=== PATIENT | female | born 1990 | race Caucasian/White ===

== ENCOUNTER 2020-10-14 14:53 | Emergency (ER) | payer OTHER, SELFPAY ==
[2020-10-14 15:12] VITALS: BP 110/59; PULSE 87; RESP 16; TEMP 36.7; O2SAT 97
--- NOTE | 2020-10-14 16:32 | ED.BACK ---
HPI - Back Pain/Injury General Chief Complaint: Back Pain/Injury Stated Complaint: states threw out her back Time Seen by Provider: 10/14/20 16:24 Source: patient Mode of arrival: Ambulatory Limitations: no limitations History of Present Illness HPI Narrative: Patient is an otherwise healthy 30-year-old female here for evaluation of back pain. 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 She states that feel like she is having muscle spasms and occasionally having radiation down her right leg. She has had low back pain in the past and has had epidural steroid injections for that was a couple years ago. She is not having any urinary symptoms. No change in bowel habits. Has not tried anything for symptoms prior to arrival. Related Data Home Medications Medication Instructions Recorded Confirmed Ethinyl Estradiol/Norgestima 1 tab PO QDAY #0 pac 04/03/16 (ORTHO TRI-CYCLEN LO) bupropion HCl [Wellbutrin SR] 150 mg PO Q2DAYS #0 04/03/16 ibuprofen 800 mg PO PRN PRN #0 04/03/16 sertraline 50 mg PO QDAY #0 tab 04/03/16 Previous Rx's Medication Instructions Recorded cyclobenzaprine 10 mg PO TID PRN #20 tab 10/14/20 hydrocodone-acetaminophen [[place]] 1 tab PO Q6H PRN #10 tab 10/14/20 Allergies Allergy/AdvReac Type Severity Reaction Status Date / Time No Known Drug Allergies Allergy Verified 10/14/20 15:14 Review of Systems Constitutional Constitutional: Denies fatigue and Denies headache(s) ENT Ears, Nose, Mouth, and Throat: Denies headache(s) Cardiovascular Cardiovascular: Denies chest pain and Denies dyspnea Respiratory Respiratory: Denies dyspnea Gastrointestinal Gastrointestinal: Denies abdominal pain, Denies nausea and Denies vomiting Musculoskeletal Musculoskeletal: Reports back pain and Reports stiffness Integumentary/Breasts Skin/Breast: Denies rash Neurologic Neurologic: Denies behavioral changes and Denies headache(s) Psychiatric Psychiatric: Denies behavioral changes Endocrine Endocrine: Denies fatigue Hematologic/Lymphatic On Anticoagulants: No Allergic/Immunologic Allergic/Immunologic: Denies urticaria Patient History Medical History Lower back pain Social History lives independently: Yes Exam Initial Vital Signs Initial Vital Signs: Vital Signs Temperature 98.0 F 10/14/20 15:12 Pulse Rate 87 10/14/20 15:12 Respiratory Rate 16 10/14/20 15:12 Blood Pressure 110/59 L 10/14/20 15:12 Pulse Oximetry 97 10/14/20 15:12 Const General: cooperative and comfortable Limitations: mental status not altered HENMT Head: normal to inspection and normocephalic Resp Effort & Inspection: normal respiratory effort Auscultation: clear to auscultation bilaterally Cardio Rate: regular rate Rhythm: regular rhythm Back/Spine/Pelvis Cervical Spine: No cervical spinal tenderness Thoracic/Lumbar Spine: No paraspinal tenderness, No thoracic spinal tenderness and No lumbar spinal tenderness Sacroiliac Joints: No nontender Skin Lesions: no lesions Rashes: no rashes Neuro General: patient alert and patient awake Cognition: normal cognition Speech: speech normal Extrem General: normal to inspection and capillary refill normal Psych Appearance: grossly normal and well kempt Course Orders Ordered: Discontinued Medications Hydromorphone HCl (Hydromorphone 1 Mg Inj) 1 mg IM NOW ONE Stop: 10/14/20 16:35 Last Admin: 10/14/20 16:55 Dose: 1 mg Documented by: LESLEY Ketorolac Tromethamine (Ketorolac 60 Mg/2 Ml Vial) 30 mg IM NOW ONE Stop: 10/14/20 16:35 Last Admin: 10/14/20 16:56 Dose: 30 mg Documented by: LESLEY Vital Signs Vital signs: Vital Signs - 8 hr 10/14/20 15:12 10/14/20 17:28 Temperature 98.0 F Pulse Rate 87 75 Respiratory Rate 16 16 Blood Pressure 110/59 L 125/66 Pulse Oximetry 97 98 MDM - Back Pain/Injury MDM Narrative Medical decision making narrative: She has no reproducible tenderness to palpation here in the ER. I do of low suspicion for cauda equina given her presentation today. I suspect this is musculoskeletal in origin in the setting of her low back pain in the past. Will send home with symptom treatment. She was given return precautions. She expressed understanding and agreement. Discharge Plan Departure Patient Disposition: Home Clinical Impression: Back pain Instructions: DI for Low Back Pain Activity Restrictions/Additional Instructions: I recommend that you talk with your medical department on days for potentially any further workup to include referral to see specialist, further imaging studies. Take the medications as directed. Return to the emergency department for any new or worsening symptoms Prescriptions: New cyclobenzaprine 10 mg tablet 10 mg PO TID PRN (Reason: muscle spasm) Qty: 20 RF: 0 hydrocodone-acetaminophen [[place]] 5-325 mg tablet 1 tab PO Q6H PRN (Reason: pain) Qty: 10 RF: 0 No Action bupropion HCl [Wellbutrin SR] 150 MG tablet extended release 12 hr 150 mg PO Q2DAYS Qty: 0 RF: 0 sertraline 50 MG tablet 50 mg PO QDAY Qty: 0 RF: 0 ibuprofen 800 MG tablet 800 mg PO PRN PRNQty: 0 RF: 0 Ethinyl Estradiol/Norgestima (ORTHO TRI-CYCLEN LO) 1 tab PO QDAY Qty: 0 RF: 0 Referrals: Luis Raya MD [Primary Care Provider] -
[2020-10-14] MEDS: HYDROMORPHONE 1 MG INJ IM (16:55)
[2020-10-14] MEDS: KETOROLAC 60 MG/2 ML VIAL 30 MG IM (16:56)
[2020-10-14 17:28] VITALS: BP 125/66; PULSE 75; RESP 16; O2SAT 98
== END 2020-10-14 17:30 | disposition home or self-care (01) ==
PROVIDERS: Emergency Provider Emergency Medicine; PCP Obstetrics & Gynecology
DX: M54.9 Dorsalgia, unspecified (principal)
CPT/HCPCS: 96372; 99281; 99283; J1170; J1885

== ENCOUNTER 2021-08-15 15:01 | Emergency (ER) | payer OTHER, SELFPAY ==
[2021-08-15 15:04] VITALS: BP 122/79; PULSE 73; RESP 14; TEMP 35.9; O2SAT 100; BMI 23.3
== END 2021-08-15 15:15 | disposition left against medical advice (07) ==
PROVIDERS: Emergency Provider Emergency Medicine; PCP Obstetrics & Gynecology
DX: Z53.21 Procedure and treatment not carried out due to patient leaving prior to being seen by health care provider (principal)
CPT/HCPCS: 99281

== ENCOUNTER → 2022-01-29 08:24 | Outpatient (CLI) | payer OTHER, SELFPAY ==
--- NOTE | 2022-01-29 | DI.RAD.S_ITS ---
PROCEDURE: FL SHOULDER INJECTION MR/CT RT INDICATIONS: RIGHT SHOULDER PAIN COMPARISON: None. TECHNIQUE: The indications, alternatives, benefits, risks, and complications of the procedure were explained to the patient. Written informed consent was obtained and placed in the chart. The shoulder was examined fluoroscopically and a site for needle placement chosen for entry into the glenohumeral joint from an anterior approach. The skin was prepped and draped in a sterile fashion, and 1% lidocaine infiltrated from skin down to joint capsule. A spinal needle was inserted into the glenohumeral joint, and a small amount of iodinated contrast media injected to confirm intra-articular placement of the needle tip. This was followed by approximately 12 mL dilute solution of a gadolinium containing MR contrast agent. The needle was removed and a dressing was applied. The patient was given postprocedural instructions and sent to the MR suite for MR imaging. FINDINGS: A single fluoroscopic spot image demonstrates intra-articular location of injected iodinated contrast. IMPRESSION: Successful fluoroscopically guided administration of dilute Gadolinium solution into the shoulder joint for MR arthrogram. Dictated by: Clarisa Gregory MD, PhD on 01/29/2022 at 10:36 Approved by: Clarisa Gregory MD, PhD on 01/29/2022 at 10:36
--- NOTE | 2022-01-29 | DI.MRI.S_ITS ---
PROCEDURE: MR SHOULDER RT W CON INDICATIONS: RIGHT SHOULDER PAIN TECHNIQUE: After the administration of 12 mL of dilute intra-articular Gadolinium contrast, oblique coronal T1 and T2 spin echo with fat saturation, oblique sagittal T1 spin echo with and without fat saturation, oblique sagittal T2 fast spin echo with fat saturation, axial T1 spin echo with fat saturation through the shoulder. COMPARISON: None. FINDINGS: Image quality: Excellent. Rotator cuff: There is mild T2 signal elevation throughout the supraspinatus and infraspinatus tendons at the humeral insertion sites extending to the musculotendinous junctions, indicating tendinopathy. The supraspinatus, infraspinatus, and subscapularis tendons appear intact throughout. No rotator cuff muscle atrophy on sagittal images. Bones and bursae: No bone marrow contusions or fractures. Mild acromioclavicular joint degeneration. The acromion demonstrates conventional anatomy, without an os acromiale. Capsule and soft tissues: The labrum and glenohumeral ligaments appear intact. The long head of the biceps tendon demonstrates normal location and morphology. The rotator interval appears normal, without fibrosis. The coracohumeral ligament is of normal thickness. No intra-articular bodies. IMPRESSION: 1. Supraspinatus and infraspinatus tendinopathy. No rotator cuff tear. 2. Mild acromioclavicular joint osteoarthritis. 3. No evidence of glenoid labral tear. Dictated by: Daniela Pena M.D. on 01/29/2022 at 10:39 Approved by: Daniela Pena M.D. on 01/29/2022 at 10:40
== END ==
DX: M19.011 Primary osteoarthritis, right shoulder (principal); M25.511 Pain in right shoulder
CPT/HCPCS: 23350; 73222; 77002